=== PATIENT | male | born 1945 | race African-American/Black ===

== ENCOUNTER → 2019-06-08 | Outpatient (CLI) | payer MEDICARE ==
--- NOTE | 2019-06-08 20:08 | MRI ---
EXAM DESCRIPTION: Brain w/wo Contrast: Magnetic Resonance Imaging. CLINICAL HISTORY: 74 years Male VASCULAR DEMENTIA WITHOUT BEHAVIORAL DISTURBANCE COMPARISON: MRI scan of the brain without and with gadolinium IV contrast March 2011 TECHNIQUE: Multiplanar, high-field MRI, multiple conventional sequences, without and with gadolinium IV contrast. No adverse reactions. Multiple axial diffusion sequences. FINDINGS: Bilateral confluent hyperintense FLAIR and T2-weighted signal in the periventricular white matter extending from the frontal horns and occipital horns to the bilateral lowery radiata and centrum semiovale and relatively symmetric bilaterally. This has progressed since the prior study. Bilateral scattered subcortical white matter lesions are focal,, including a large lesion in the bilateral frontoparietal junction on the right which has enlarged since the prior study. No hemorrhage, no contrast enhancement, and no mass effect. Hyperintense FLAIR signal in the mid body of the lowery radiata and also in the caudal region. No enhancement hemorrhage or mass effect. No abnormal enhancement in the basal ganglia. Focal hyperintense FLAIR and T2 signal in the right external capsule. No hemorrhage, no cerebral edema, no mass-effect. Normal signal in the brainstem and cerebellar hemispheres. No hemorrhage, no cerebral edema, no mass-effect. Normal contrast enhancement. Concordance of the diffusion and non-diffusion sequences with no evidence of acute or subacute infarction. Cortical sulci, ventricles, and other CSF spaces, and the subdural spaces are minimally prominent for patient's age with slight progression since the prior study. No effacement or displacement. No midline shift. No extra-axial hemorrhage. Normal contrast enhancement. Normal flow signal void in the major vessels of the [place], and the venous sinuses. IACs are symmetric bilaterally. No fluid in the bilateral mastoid air cells. No mass effect in the bilateral Cerebellopontine angles. Normal contrast enhancement. Pituitary gland occupies most of the sella. Normal contrast enhancement. Base of the cerebellar tonsils is above the foramen magnum. Normal signal in the paranasal sinuses. The bony calvarium is intact. IMPRESSION: 1. Periventricular white matter lesions have increased in number and area stenosis the prior study. No abnormal enhancement. No hemorrhage, mass effect, or diffusion restriction. Enlarging lesion in the subcortical white matter of the right frontal parietal junction above the level of the ventricles. No hemorrhage or diffusion restriction or enhancement. Progressive ischemic changes and aging changes in the periventricular white matter. 2. Lesions in the mid body and caudal region of the corpus callosum not seen on the prior study with no enhancement. No mass effect or diffusion restriction. No new lesions, no hemorrhage, no enhancement in the midbrain or cerebellum. Consider multiple sclerosis for callosal lesions, periventricular white matter lesions but no involvement of the brainstem or cerebellum. Electronically signed by: Pablo Thibodeaux MD 06/08/2019 8:06 PM [facility]
== END ==
LOC: MRI 08:01
PROVIDERS: ATTEND Psychiatry & Neurology Neurology
DX: G35 Multiple sclerosis (principal); F01.50 Vascular dementia, unspecified severity, without behavioral disturbance, psychotic disturbance, mood disturbance, and anxiety; R90.82 White matter disease, unspecified; G93.9 Disorder of brain, unspecified